=== PATIENT | male | born 1945 | race Caucasian/White ===

== ENCOUNTER 2021-07-27 17:50 | Emergency (ER) | payer MEDICARE, OTHER ==
[2021-07-27 19:53] LABS: HEMOGLOBIN 11.9 gm/dl (14.0-17.5); RED BLOOD COUNT 3.67 M/UL (4.20-5.50)
== END 2021-07-27 23:40 ==
LOC: ER1 17:50
PROVIDERS: Preventive Medicine Occupational Medicine
DX: F03.90 Unspecified dementia, unspecified severity, without behavioral disturbance, psychotic disturbance, mood disturbance, and anxiety (principal); I11.0 Hypertensive heart disease with heart failure; I50.9 Heart failure, unspecified
CPT/HCPCS: 51701; 71045; 80053; 81001; 85025; 87086; 96374; 99285; J2060